=== PATIENT | female | born 1965 | race Caucasian/White ===

== ENCOUNTER → 2018-08-27 | Emergency (ER) | payer OTHER ==
[~2018-08-27] VITALS: Ht 172.7 cm; Wt 65.8 kg
[~2018-08-27] MED LIST: BUDESONIDE0.5 MG/2 M IH; CEFDINIR300 MG PO; IPRAT-ALBUT 0.5-3 ML IH; KETO10TA2 PO; MUCINEX DM ER1 EAC1 PO; PROMETH-CODEIN 65 ML PO
== END | disposition home or self-care (01) ==
LOC: ER 10:22
DX: J06.9 Acute upper respiratory infection, unspecified (principal); J11.1 Influenza due to unidentified influenza virus with other respiratory manifestations